=== PATIENT | female | born 1990 | race Hispanic/Latino ===

== ENCOUNTER 2020-01-29 07:20 | Inpatient (IN) | payer MEDICAID ==
[~2020-01-29] VITALS: Ht 162.6 cm; Wt 85.7 kg
[2020-01-29] MEDS ORDERED: LACTATED RINGERS 1000ML 1,000 ML IV PRN (07:41)
[2020-01-29] MEDS ORDERED: OXYTOCIN 10 USP UNITS/ML 20 UNIT in LACTATED RINGERS 1000ML 1,000 ML IV SCH (07:45)
[2020-01-29 08:17] LABS: HEMATOCRIT 33.1 % (36-48); MEAN CORPUSCULAR HEMOGLOBIN 28.1 pg (27.0-33.0); MEAN CORPUSCULAR HGB CONC 32.9 g/dL (32.0-36.0); MEAN CORPUSCULAR VOLUME 85.3 fL (79-99); RED BLOOD CELL COUNT(AUTO) 3.88 MIL/uL (4.00-5.50); RED CELL DISTRIBUTION WIDTH 13.9 % (11.0-15.5); WHITE BLOOD COUNT (AUTO) 6.9 K/uL (4.8-10.8)
[2020-01-29 08:29] LABS: APPEARANCE,URINE Clear (CLEAR); BILIRUBIN,URINE Negative (NEGATIVE); COLOR,URINE Yellow (YELLOW); GLUCOSE, URINE (UA) Negative (NEGATIVE); KETONES,URINE Trace mg/dL (NEGATIVE); LEUKOCYTE ESTERASE ,URINE Negative (NEGATIVE); NITRATE,URINE Negative (NEGATIVE); OCCULT BLOOD,URINE Negative (NEGATIVE); PH,URINE 6.5 (5.0-8.0); PROTEIN,URINE POS 1+ mg/dL (NEGATIVE)
[2020-01-29] MEDS: OXYTOCIN-LR 20 UNITS/1000 ML 1,000 ML IV SCH ×2 (08:33→12:47)
[2020-01-29 08:41] LABS: BACTERIA,URINE Rare /HPF (None Seen); MUCUS,URINE Few LPF (None Seen); RBC,URINE 0-1 /HPF (0-1); SQUAMOUS EPITHELIAL CELL,UR Few /HPF (0-2); WBC,URINE 0-1 /HPF (0-1)
[2020-01-29] MEDS ORDERED: MEPERIDINE-PF 25 MG/ML SYG ONE (10:00)
[2020-01-29] MEDS ORDERED: MEPERIDINE-PF 25 MG/ML SYG IVP SCH (10:00)
[2020-01-29] MEDS ORDERED: PROMETHAZINE HCL 25 MG/ML 1ML AMPULE IM SCH (10:00)
[2020-01-29] MEDS ORDERED: WITCH HAZEL 1 PAD TP PRN (10:30)
[2020-01-29] MEDS ORDERED: BENZOCAINE/LANOLIN/ALOE VERA 60 ML AEROSOL TP PRN (10:30)
[2020-01-29] MEDS ORDERED: MEASLES/MUMPS/RUBELLA VACCINE, LIVE 0.5 ML/VIAL SQ PRN (10:30)
[2020-01-29] MEDS ORDERED: ACETAMINOPHEN-CODEINE 300/30MG TAB PO PRN (10:30)
[2020-01-29] MEDS ORDERED: DIPH,PERTUSS(ACELL),TET VAC/PF 0.5 ML VIAL IM PRN (10:30)
[2020-01-29] MEDS ORDERED: ACETAMINOPHEN 325 MG TAB PO PRN (10:30)
[2020-01-29] MEDS ORDERED: LANOLIN 30GM OINTMENT TP PRN (10:30)
[2020-01-29] MEDS: IBUPROFEN 600 MG TABLET PO PRN (12:47)
[2020-01-29] MEDS ORDERED: PREN-154 PO (13:41)
[2020-01-29 16:45] VITALS: BP 140/72
[2020-01-29 19:50] VITALS: BP 158/75
[2020-01-29] MEDS: DOCUSATE SODIUM 100 MG CAP PO SCH (20:35)
[2020-01-29 23:23] VITALS: BP 118/65
[2020-01-30] MEDS: IBUPROFEN 600 MG TABLET PO PRN ×2 (00:32→08:27)
[2020-01-30 03:39] VITALS: BP 106/57
[2020-01-30 05:23] LABS: HEMATOCRIT 28.7 % (36-48); MEAN CORPUSCULAR HEMOGLOBIN 27.8 pg (27.0-33.0); MEAN CORPUSCULAR HGB CONC 32.4 g/dL (32.0-36.0); MEAN CORPUSCULAR VOLUME 85.9 fL (79-99); RED BLOOD CELL COUNT(AUTO) 3.34 MIL/uL (4.00-5.50); RED CELL DISTRIBUTION WIDTH 13.8 % (11.0-15.5); WHITE BLOOD COUNT (AUTO) 8.4 K/uL (4.8-10.8)
--- NOTE | 2020-01-30 06:45 | NUR ---
Natanael ARMSTRONG CNM ROUNDED AND DISCHARGED PATIENT TO HOME. PATIENT STABLE.
[2020-01-30 07:11] VITALS: BP 124/75
--- NOTE | 2020-01-30 07:40 | NUR ---
PATIENT ASSESSED AND SALINE LOCK REMOVED FOR DISCHARGE. PATIENT IS STABLE AND C/OHAVING MILD PAIN.
[2020-01-30] MEDS: DOCUSATE SODIUM 100 MG CAP PO SCH (08:27)
[2020-01-30 11:06] VITALS: BP 115/67
--- NOTE | 2020-01-30 12:00 | NUR ---
PATIENT DENIES PAIN AND WAS GIVEN DISCHARGE INSTRUCTIONS AND INSTRUCTED PATIENT TO TAKE TYLENOL OR MOTRIN FOR UTERINE CRAMPING. PATIENT VERBALIZED UNDERSTANDING INSTRUCTIONS GIVEN.
--- NOTE | 2020-01-30 12:50 | NUR ---
PATIENT WAS TAKEN VIA W/C CARRYING BABY IN ARMS AND FAMILY VEHICLE AND WAS DISCHARGED TO HER SPOUSE IN STABLE CONDITION. PATIENT DENIES PAIN.
[2020-01-30 13:11] LABS: HEPATITIS Bs ANTIGEN SCREEN P Negative (Negative)
== END 2020-01-30 12:50 | disposition home or self-care (01) | DRG 560 ==
LOC: EDH 07:20 → OBSVTOIN 07:34 → LDH 07:34 → WSH 13:30
PROVIDERS: ADMIT Obstetrics & Gynecology; ATTEND Obstetrics & Gynecology
PROC: 10E0XZZ Delivery of Products of Conception, External Approach (ICD-10-PCS; principal; 2020-01-30)
PROC: 3E0234Z Introduction of Serum, Toxoid and Vaccine into Muscle, Percutaneous Approach (ICD-10-PCS; 2020-01-30)
PROC: 3E0134Z Introduction of Serum, Toxoid and Vaccine into Subcutaneous Tissue, Percutaneous Approach (ICD-10-PCS; 2020-01-30)
DX: O80 Encounter for full-term uncomplicated delivery (principal); Z37.0 Single live birth; Z23 Encounter for immunization; Z3A.40 40 weeks gestation of pregnancy
CPT/HCPCS: 36415; 81001; 85027; 86592; 86850; 86900; 86901; 87340; 90715; A4351; G0378; J2175; J2590; J7120